=== PATIENT | male | born 1955 | race Hispanic/Latino ===

== ENCOUNTER 2018-06-30 12:06 | Emergency (ER) | payer MEDICARE ==
[2018-06-30] MEDS ORDERED: SODIUM CHLORIDE 0.9% 1000ML 1,000 ML IV ONE (12:29)
[2018-06-30] MEDS ORDERED: MECLIZINE HCL 25 MG TABLET ONE (12:29)
[2018-06-30 13:28] LABS: BASOPHILS % (AUTO) 0.3 % (0.0-5.0); EOSINOPHILS % (AUTO) 0.6 % (0.0-8.0); HEMATOCRIT 39.7 % (42-54); LYMPHOCYTES % (AUTO) 6.6 % (21.0-51.0); MEAN CORPUSCULAR HEMOGLOBIN 31.2 pg (27.0-33.0); MEAN CORPUSCULAR HGB CONC 33.8 g/dL (32.0-36.0); MEAN CORPUSCULAR VOLUME 92.3 fL (79-99); MONOCYTES % (AUTO) 5.7 % (3.0-13.0); NEUTROPHILS % (AUTO) 86.8 % (40.0-77.0); PLATELET COUNT (AUTO) 104 K/uL (130-400); RED CELL DISTRIBUTION WIDTH 12.7 % (11.0-15.5); WHITE BLOOD COUNT (AUTO) 7.7 K/uL (4.8-10.8)
[2018-06-30 13:42] LABS: CREATININE 1.4 mg/dL (0.5-1.5); POTASSIUM 3.8 mmol/L (3.5-5.1)
[2018-06-30 13:45] LABS: B-TYPE NATRIURETIC PEPTIDE 11 pg/mL (0-100)
[2018-06-30 13:46] LABS: ALBUMIN 3.7 g/dL (3.5-5.0); BILIRUBIN,DIRECT 0.1 mg/dL (0.0-0.3); TOTAL PROTEIN, SERUM 7.1 g/dL (6.0-8.3)
== END 2018-06-30 15:10 | disposition home or self-care (01) ==
LOC: EDH 12:06
DX: R55 Syncope and collapse (principal); E86.0 Dehydration; I10 Essential (primary) hypertension
CPT/HCPCS: 36415; 70450; 80048; 80076; 83880; 84484; 85025; 93005; 99284; J7030

== ENCOUNTER 2021-12-26 10:08 | Observation (INO) | payer MEDICARE ==
[~2021-12-26] VITALS: Ht 167.6 cm; Wt 78.7 kg
[2021-12-26] MEDS ORDERED: 0.9%NACL 1000ML 1,000 ML IV ONE (10:30)
[2021-12-26 10:52] LABS: BASOPHILS % (AUTO) 0.9 % (0.0-5.0); EOSINOPHILS % (AUTO) 1.6 % (0.0-8.0); HEMATOCRIT 37.9 % (42-54); LYMPHOCYTES % (AUTO) 11.9 % (21.0-51.0); MEAN CORPUSCULAR HEMOGLOBIN 29.9 pg (27.0-33.0); MEAN CORPUSCULAR HGB CONC 32.7 g/dL (32.0-36.0); MEAN CORPUSCULAR VOLUME 91.3 fL (79-99); MONOCYTES % (AUTO) 4.5 % (3.0-13.0); NEUTROPHILS % (AUTO) 80.9 % (40.0-77.0); PLATELET COUNT (AUTO) 120 K/uL (130-400); RED BLOOD CELL COUNT(AUTO) 4.15 MIL/uL (4.50-6.20); RED CELL DISTRIBUTION WIDTH 12.8 % (11.0-15.5); WHITE BLOOD COUNT (AUTO) 8.7 K/uL (4.8-10.8)
[2021-12-26 10:55] LABS: CREATININE 2.7 mg/dL (0.5-1.5); POTASSIUM 4.4 mmol/L (3.5-5.1)
[2021-12-26 10:59] LABS: ALBUMIN 3.9 g/dL (3.5-5.0); BILIRUBIN,TOTAL 0.7 mg/dL (0.2-1.0); TOTAL PROTEIN, SERUM 7.1 g/dL (6.0-8.3)
[2021-12-26] MEDS ORDERED: ASPIRIN 325MG EC TAB PO ONE (12:00)
[2021-12-26 12:43] LABS: CHOLESTEROL 109 mg/dL (<200); HDL CHOLESTEROL 40 mg/dL (29-71); LDL DIRECT 58 mg/dL (0-99); TRIGLYCERIDES 54 mg/dL (30-200)
[2021-12-26] MEDS ORDERED: ATOR10 PO (15:44)
[2021-12-26] MEDS ORDERED: VITA-328 PO (15:44)
[2021-12-26] MEDS ORDERED: LISI40TA9 PO (15:44)
[2021-12-26 17:03] LABS: APPEARANCE,URINE CLEAR (CLEAR); BILIRUBIN,URINE NEGATIVE (NEGATIVE); COLOR,URINE YELLOW (YELLOW); GLUCOSE, URINE (UA) NEGATIVE (NEGATIVE); KETONES,URINE 5 mg/dL (NEGATIVE); LEUKOCYTE ESTERASE ,URINE NEGATIVE (NEGATIVE); NITRATE,URINE NEGATIVE (NEGATIVE); OCCULT BLOOD,URINE NEGATIVE (NEGATIVE); PH,URINE 5.5 (5.0-8.0); PROTEIN,URINE NEGATIVE (NEGATIVE); UROBILINOGEN,URINE 0.2 mg/dL (0.2-1.0)
[2021-12-26 17:15] LABS: BACTERIA,URINE Rare /HPF (None Seen); MUCUS,URINE Moderate LPF (None Seen); RBC,URINE 0-1 /HPF (0-1); SQUAMOUS EPITHELIAL CELL,UR Few /HPF (0-2); WBC,URINE 0-1 /HPF (0-1)
[2021-12-26] MEDS: METOPROLOL TARTRATE 25 MG TAB PO SCH (21:00)
[2021-12-27 05:20] VITALS: BP 115/49
[2021-12-27 06:29] LABS: ALBUMIN 3.6 g/dL (3.5-5.0); BILIRUBIN,TOTAL 0.6 mg/dL (0.2-1.0); CREATININE 1.7 mg/dL (0.5-1.5); MAGNESIUM 1.8 mg/dL (1.80-2.40); PHOSPHORUS 3.9 mg/dL (2.5-4.9); POTASSIUM 4.3 mmol/L (3.5-5.1); TOTAL PROTEIN, SERUM 6.8 g/dL (6.0-8.3)
[2021-12-27 07:30] VITALS: BP 117/70
[2021-12-27 09:29] LABS: EOSINOPHILS % (AUTO) 1.9 % (0.0-8.0); HEMATOCRIT 39.6 % (42-54); LYMPHOCYTES % (AUTO) 24.2 % (21.0-51.0); MEAN CORPUSCULAR HEMOGLOBIN 30.4 pg (27.0-33.0); MEAN CORPUSCULAR HGB CONC 32.6 g/dL (32.0-36.0); MEAN CORPUSCULAR VOLUME 93.2 fL (79-99); MONOCYTES % (AUTO) 4.7 % (3.0-13.0); NEUTROPHILS % (AUTO) 67.9 % (40.0-77.0); PLATELET COUNT (AUTO) 144 K/uL (130-400); RED BLOOD CELL COUNT(AUTO) 4.25 MIL/uL (4.50-6.20); RED CELL DISTRIBUTION WIDTH 12.9 % (11.0-15.5); WHITE BLOOD COUNT (AUTO) 7.9 K/uL (4.8-10.8)
[2021-12-27] MEDS: ATORVASTATIN 20 MG TABLET PO SCH (09:35)
[2021-12-27] MEDS: METOPROLOL TARTRATE 25 MG TAB PO SCH ×2 (09:35→19:37)
[2021-12-27] MEDS: ASPIRIN 81MG CHEW TAB PO SCH (09:35)
[2021-12-27 09:37] LABS: HEMOGLOBIN A1C 6.2 % (4.0-6.0)
[2021-12-27] MEDS: ENOXAPARIN SODIUM 40 MG/0.4 ML SYRINGE SQ SCH (09:39)
[2021-12-27 11:00] VITALS: BP 123/55
[2021-12-27 16:00] VITALS: BP 132/78
[2021-12-27 20:00] VITALS: BP 132/83
[2021-12-28] VITALS: BP 123/67
[2021-12-28 04:00] VITALS: BP 114/79
[2021-12-28 06:06] LABS: HEMATOCRIT 37.4 % (42-54); MEAN CORPUSCULAR HEMOGLOBIN 30.4 pg (27.0-33.0); MEAN CORPUSCULAR HGB CONC 33.2 g/dL (32.0-36.0); MEAN CORPUSCULAR VOLUME 91.7 fL (79-99); RED BLOOD CELL COUNT(AUTO) 4.08 MIL/uL (4.50-6.20); RED CELL DISTRIBUTION WIDTH 12.8 % (11.0-15.5); WHITE BLOOD COUNT (AUTO) 6.9 K/uL (4.8-10.8)
[2021-12-28 06:22] LABS: CREATININE 1.5 mg/dL (0.5-1.5); MAGNESIUM 1.7 mg/dL (1.80-2.40); POTASSIUM 4.6 mmol/L (3.5-5.1)
[2021-12-28 08:00] VITALS: BP 128/69
[2021-12-28] MEDS: ATORVASTATIN 20 MG TABLET PO SCH (08:33)
[2021-12-28] MEDS: METOPROLOL TARTRATE 25 MG TAB PO SCH (08:33)
[2021-12-28] MEDS: ASPIRIN 81MG CHEW TAB PO SCH (08:33)
[2021-12-28] MEDS: ENOXAPARIN SODIUM 40 MG/0.4 ML SYRINGE SQ SCH (08:34)
[2021-12-28 11:00] VITALS: BP 114/67
[2021-12-28 16:00] VITALS: BP 143/80
== END 2021-12-28 16:50 | disposition home or self-care (01) ==
LOC: EDH 10:08 → EDHIP 12:03 → 3BH 12-27 05:17
PROVIDERS: ADMIT Internal Medicine Infectious Disease; ATTEND Internal Medicine Infectious Disease
DX: R55 Syncope and collapse (principal); Z20.822 Contact with and (suspected) exposure to COVID-19; N17.0 Acute kidney failure with tubular necrosis; E86.0 Dehydration; I12.9 Hypertensive chronic kidney disease with stage 1 through stage 4 chronic kidney disease, or unspecified chronic kidney disease; N18.31 Chronic kidney disease, stage 3a; E11.22 Type 2 diabetes mellitus with diabetic chronic kidney disease; I21.4 Non-ST elevation (NSTEMI) myocardial infarction; D69.6 Thrombocytopenia, unspecified; M62.82 Rhabdomyolysis; E78.00 Pure hypercholesterolemia, unspecified; E78.5 Hyperlipidemia, unspecified; Z79.899 Other long term (current) drug therapy; Z98.890 Other specified postprocedural states
CPT/HCPCS: 36415 ×3; 70450; 76770; 80048; 80053 ×2; 80061; 81001; 82550 ×3; 83036; 83735 ×2; 83874 ×3; 84100; 84484 ×4; 85025 ×2; 85027; 87635; 93005 ×5; 93306; 93356; 96360; 96361; 96372 ×2; 99291; G0378 ×52; J1650 ×2